=== PATIENT | male | born 1980 | race Caucasian/White ===

== ENCOUNTER 2018-06-10 19:20 | Emergency (ER) | payer BC ==
--- NOTE | 2018-06-10 20:21 | ED Physician Chart ---
ED Chief Complaint/HPI - Patient Information Date Seen:: 06/10/18 Time Seen:: 20:21 Chief Complaint:: hives and allergic reactions History of Present Illness:: 37 yo male with history of allergy to unknown food sources, developed redness and diffuse itchy hives on his face, neck and bilateral upper extremities for 30 minutes after eating at [employer] restaurant. He drove himself to the ER. He felt tongue swollen but denied difficulty breathing or SOB. Allergies:: Allergies Allergy/AdvReac Type Severity Reaction Status Date / Time silver sulfadiazine Allergy Verified 06/10/18 19:33 [From Silvadene] Vitals:: Vital Signs - 8 hr 06/10/18 19:30 Temp 97.5 F HR 114 RR 18 BP 125/81 O2 Sat % 97 ED Review of Systems - Review of Systems General/Constitutional: No fever Skin: Skin lesions Head: No headache Eyes: No pain ENT: No nasal drainage Neck: No neck pain Cardio Vascular: No chest pain Pulmonary: No SOB GI: No nausea, No vomiting Musculoskeletal: No bone or joint pain Neurological: No focal symptoms ED Past Medical History - Past Medical History Past Medical History: DM Social History: Non Smoker, No Alcohol, No Drug Use Surgical History: None Family Medical History - Family Member Mother History Unknown: Yes ED Physical Exam - Physical Examination General/Constitutional: Awake Head: Atraumatic Eyes: PERRL Other Skin comments:: Erythematous and diffuse itchy hives on the face, neck, torso and bilateral upper extremities Neck: No nuchal rigidity Respiratory: No Wheeze/Rhonchi/Rales Cardio Vascular: RRR, No murmur, gallop, rubs, NL S1 S2 GI: No tenderness/rebounding/guarding Extremities: normal strength in all extremities Neuro/Psych: No focal deficits ED Assessment - Assessment General Assessment: Urticaria Food allergy Assessment/Comments:: Solu-Medrol 125mg IV Epinephrine 0.5mg SC D/c home 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 Is Septic Shock (SBP<90, OR Lactate>4 mmol\L) present?: No - <6hrs of presentation: Vital Signs: Vital Signs - 8 hr 06/10/18 19:30 Temp 97.5 F HR 114 RR 18 BP 125/81 O2 Sat % 97 ED Reassessment (Disposition) - Reassessment Reassessment Condition:: Improved - Patient Disposition Discharge/Transfer:: Home ED Discharge Plan - Patient Disposition Admit/Discharge/Transfer: PT DISCHARGED HOME Instructions: Food Allergy
[2018-06-10] MEDS ORDERED: EPINEPHRine HCL 1 mg/mL 1mL Amp SUBQ STA ×2 (20:37)
[2018-06-10] MEDS ORDERED: EPINEPHRine HCL 1 mg/mL 1mL Amp ONE (20:47)
== END 2018-06-10 21:55 | disposition home or self-care (01) ==
LOC: ER 19:20
DX: L50.0 Allergic urticaria (principal); L29.9 Pruritus, unspecified; T78.1XXA Other adverse food reactions, not elsewhere classified, initial encounter; E11.9 Type 2 diabetes mellitus without complications; Z88.8 Allergy status to other drugs, medicaments and biological substances; X58.XXXA Exposure to other specified factors, initial encounter
CPT/HCPCS: 99284; 96372; 96374; J0171; J2930; Z7502